=== PATIENT | male | born 1990 | race Caucasian/White ===

== ENCOUNTER 2017-09-14 16:57 | Emergency (ER) | payer SELFPAY ==
[2017-09-14 17:08] VITALS: BP 139/78; PULSE 85; TEMP 98.4; BMI 24.7
--- NOTE | 2017-09-14 17:55 | PDOC ---
History of Present Illness - General History Source: Patient Exam Limitations: No Limitations - History of Present Illness Initial Comments: 09/14/17 18:13 The patient is a 26 year old male, with a significant past medical history of asthma, who presents to the emergency department with chest pain and shortness of breath for a while now. He describes his chest pain as sharp and intermittent in sharp, ranging from mild to moderate, without radiation or modifying factors. Resolving immediately after a few seconds. He reports that he recently went to [facility] after an episode of chest pain, was told that part of his heart was enlarged and was referred to a gear machine operator general who was unable to perform any extra exams due to his lack of insurance situation. While at [place] he had blood work, EKG and chest X- Ray. The patient denies headache and dizziness. Denies fever, chills, nausea, vomit, diarrhea and constipation. Denies dysuria, frequency, urgency and hematuria. Allergies: None Past surgical history: None reported Social history: (+) Cigarette use. No alcohol, drug use reported <Jorje Caldera - Last Filed: 09/14/17 18:13> <Pedro Almeida - Last Filed: 09/14/17 21:16> - General Chief Complaint: Chest Pain Stated Complaint: CHEST PAIN Time Seen by Provider: 09/14/17 17:53 Past History <Jorje Caldera - Last Filed: 09/14/17 18:13> - Past Medical History Asthma: Yes Other medical history: denies. - Suicide/Smoking/Psychosocial Hx Smoking History: Never smoked <Pedro Almeida - Last Filed: 09/14/17 21:16> - Past Medical History Allergies/Adverse Reactions: Allergies Allergy/AdvReac Type Severity Reaction Status Date / Time No Known Allergies Allergy Verified 09/14/17 17:05 Home Medications: Ambulatory Orders Aspirin [ASA -] 81 mg PO DAILY 09/14/17 Review of Systems - Review of Systems Able to Perform ROS?: Yes Comments:: 09/14/17 18:14 GENERAL/CONSTITUTIONAL: No fever or chills. No weakness. HEAD, EYES, EARS, NOSE AND THROAT: No change in vision. No ear pain or discharge. No sore throat.- CARDIOVASCULAR: (+) Chest pain and shortness of breath RESPIRATORY: No cough, wheezing, or hemoptysis. GASTROINTESTINAL: No nausea, vomiting, diarrhea or constipation. GENITOURINARY: No dysuria, frequency, or change in urination. MUSCULOSKELETAL: No joint or muscle swelling or pain. No neck or back pain. SKIN: No rash NEUROLOGIC: No headache, vertigo, loss of consciousness, or change in strength/ sensation. ENDOCRINE: No increased thirst. No abnormal weight change HEMATOLOGIC/LYMPHATIC: No anemia, easy bleeding, or history of blood clots. ALLERGIC/IMMUNOLOGIC: No hives or skin allergy. <Jorje Caldera - Last Filed: 09/14/17 18:13> *Physical Exam - Vital Signs Last Vital Signs Temp Pulse Resp BP Pulse Ox 98.4 F 85 19 139/78 99 09/14/17 17:05 09/14/17 17:05 09/14/17 17:05 09/14/17 17:05 09/14/17 17:05 - Physical Exam Comments: 09/14/17 18:14 GENERAL: Awake, alert, and fully oriented, in no acute distress HEAD: No signs of trauma, normocephalic, atraumatic EYES: PERRLA, EOMI, sclera anicteric, conjunctiva clear ENT: Auricles normal inspection, hearing grossly normal, nares patent, oropharynx clear without exudates. Moist mucosa NECK: Normal ROM, supple, no lymphadenopathy, JVD, or masses LUNGS: No distress, speaks full sentences, clear to auscultation bilaterally HEART: Regular rate and rhythm, normal S1 and S2, no murmurs, rubs or gallops, peripheral pulses normal and equal bilaterally. ABDOMEN: Soft, nontender, normoactive bowel sounds. No guarding, no rebound. No masses EXTREMITIES : Normal inspection, Normal range of motion, no edema. No clubbing or cyanosis. NEUROLOGICAL: Cranial nerves II through XII grossly intact. Normal speech, normal gait, no focal sensorimotor deficits SKIN: Warm, Dry, normal turgor, no rashes or lesions noted. <Jorje Caldera - Last Filed: 09/14/17 18:13> - Vital Signs Last Vital Signs Temp Pulse Resp BP Pulse Ox 98.4 F 85 19 139/78 99 09/14/17 17:05 09/14/17 17:05 09/14/17 17:05 09/14/17 17:05 09/14/17 17:05 <Pedro Almeida - Last Filed: 09/14/17 21:16> ED Treatment Course - LABORATORY CBC & Chemistry Diagram: 09/14/17 18:21 09/14/17 18:21 <Pedro Almeida - Last Filed: 09/14/17 21:16> *DC/Admit/Observation/Transfer - Attestations Scribe Attestion: 09/14/17 18:14 Documentation prepared by Jorje Caldera, acting as medical center director for Pedro Almeida MD <Jorje Caldera - Last Filed: 09/14/17 18:13> - Attestations Physician Attestion: 09/14/17 17:55 I, Dr. Pedro Almeida, attest that this document has been prepared under my direction and personally reviewed by me in its entirety. I further attest, that it accurately reflects all work, treatment, procedures and medical decision -making performed by me. <Pedro Almeida - Last Filed: 09/14/17 21:16> Diagnosis at time of Disposition: Atypical chest pain, History of asthma - Discharge Dispostion Disposition: HOME Condition at time of disposition: Unchanged/Unknown - Patient Instructions Printed Discharge Instructions: DI for Atypical Chest Pain Additional Instructions: Gerardo - I am sorry that you have not been able to get an answer about your chest pain. It is not clear exactly why you are having this problem but it is clear that it is nothing serious. All of your tests today are unremarkable. Please follow the advice of our case management specialist in seeking follow up care. The emergency department has nothing else to offer you as far a further work up and diagnosis goes. Best- Dr. Pedro Almeida
[2017-09-14 18:52] LABS: BASOPHIL 0.4 % (0-2.0); MCH 27.1 pg (25.7-33.7); MCHC 32.6 g/dl (32.0-35.9); MEAN CELL VOLUME 83.2 fl (80-96); NEUTROPHILS 57.8 % (42.8-82.8); PLATELET COUNT 253 K/MM3 (134-434); RDW 14.3 % (11.9-15.9); WHITE BLOOD COUNT 8.3 K/mm3 (4.0-10.0)
[2017-09-14 19:02] LABS: INR 1.05 (0.82-1.09); PROTHROMBIN TIME (PATIENT) 11.9 SEC (9.98-11.88)
[2017-09-14 19:13] LABS: ALBUMIN 4.2 g/dl (3.4-5.0); ANION GAP 5 (8-16); BILIRUBIN,TOTAL 0.4 mg/dL (0.2-1.0); CALCIUM 8.7 mg/dL (8.5-10.1); CO2 30 mmol/L (21-32); CREATININE 0.8 mg/dL (0.7-1.3); GLUCOSE,RANDOM 80 mg/dL (74-106); SGPT/ALT 26 U/L (12-78); TOT PROT 7.8 g/dl (6.4-8.2)
[2017-09-14 19:15] LABS: ALK PHOS 63 U/L (45-117); CPK 118 IU/L (39-308); TROPONIN I < 0.02 ng/ml (0.00-0.05)
[2017-09-14 19:18] LABS: SGOT/AST 17 U/L (15-37)
--- NOTE | 2017-09-16 13:17 | EKG ---
Test Reason : Blood Pressure : / mmHG Vent. Rate : 070 BPM Atrial Rate : 070 BPM P-R Int : 152 ms QRS Dur : 102 ms QT Int : 368 ms P-R-T Axes : 062 071 032 degrees QTc Int : 397 ms SINUS RHYTHM WITH MARKED SINUS ARRHYTHMIA INCOMPLETE RIGHT BUNDLE BRANCH BLOCK BORDERLINE ECG NO PREVIOUS ECGS AVAILABLE Confirmed by FRANCISCO JONES, ANASTACIA ([id number]) on 09/16/2017 1:17:06 PM Referred By: Confirmed By:ANASTACIA SINGH MD
== END 2017-09-14 21:25 | disposition home or self-care (01) ==
LOC: JER 16:57
DX: R07.89 Other chest pain (principal); J45.909 Unspecified asthma, uncomplicated
CPT/HCPCS: 36415; 71010-TC; 80053; 82550; 84484; 85025; 85379; 85610; 93005; 93010; 99285-25